=== PATIENT | female | born 1990 | race Two or more races ===

== ENCOUNTER 2018-12-29 21:30 | Observation (INO) | payer MEDICAID ==
[~2018-12-29] VITALS: Ht 162.6 cm; Wt 61.2 kg
[2018-12-29] MEDS ORDERED: PREN-96 PO (21:57)
== END 2018-12-29 22:21 | disposition home or self-care (01) | DRG 566 ==
LOC: LDRP 21:30
PROVIDERS: ADMIT Obstetrics & Gynecology; ATTEND Obstetrics & Gynecology
DX: O36.8130 Decreased fetal movements, third trimester, not applicable or unspecified (principal); Z3A.39 39 weeks gestation of pregnancy
CPT/HCPCS: 59025; 81002; G0378

== ENCOUNTER 2019-01-02 10:33 | Observation (INO) | payer MEDICAID ==
[~2019-01-02 10:33] MED LIST: PREN-96 PO
== END 2019-01-02 12:10 | disposition home or self-care (01) | DRG 566 ==
LOC: LDRP 10:33
PROVIDERS: ADMIT Specialist; ATTEND Specialist
DX: O48.0 Post-term pregnancy (principal); O26.893 Other specified pregnancy related conditions, third trimester; N89.8 Other specified noninflammatory disorders of vagina; Z3A.40 40 weeks gestation of pregnancy
CPT/HCPCS: 59025; 76818; 81002; G0378

== ENCOUNTER 2019-01-04 10:32 | Observation (INO) | payer MEDICAID | END 2019-01-04 11:45 | disposition home or self-care (01) | DRG 566 | LOC: LDRP 10:32 | PROVIDERS: ADMIT Obstetrics & Gynecology; ATTEND Obstetrics & Gynecology | DX: O48.0 Post-term pregnancy (principal); F17.200 Nicotine dependence, unspecified, uncomplicated; O62.9 Abnormality of forces of labor, unspecified; O99.333 Smoking (tobacco) complicating pregnancy, third trimester; Z3A.40 40 weeks gestation of pregnancy | CPT/HCPCS: 76818; G0378; 59025; 81002 ==

== ENCOUNTER 2019-01-06 09:32 | Observation (INO) | payer MEDICAID | END 2019-01-06 12:00 | disposition home or self-care (01) | DRG 566 | LOC: LDRP 10:35 | PROVIDERS: ADMIT Obstetrics & Gynecology; ATTEND Obstetrics & Gynecology | DX: O48.0 Post-term pregnancy (principal); Z3A.40 40 weeks gestation of pregnancy | CPT/HCPCS: 59025; 76818; 81002; G0378 ==

== ENCOUNTER 2019-01-08 12:25 | Observation (INO) | payer MEDICAID | END 2019-01-08 15:15 | disposition home or self-care (01) | DRG 566 | LOC: LDRP 12:25 | PROVIDERS: ADMIT Obstetrics & Gynecology; ATTEND Obstetrics & Gynecology | DX: O48.0 Post-term pregnancy (principal); Z3A.40 40 weeks gestation of pregnancy | CPT/HCPCS: 59025; 76818; 81002; G0378 ==

== ENCOUNTER 2019-01-09 16:56 | Inpatient (IN) | payer MEDICAID ==
[~2019-01-09] VITALS: Ht 162.6 cm; Wt 68.0 kg
[2019-01-09] MEDS ORDERED: LACT. RINGERS/OXYTOCIN 20UNITS 1,000 ML IV SCH (17:28)
[2019-01-09] MEDS ORDERED: WITCH HAZEL-GLYCERIN PAD TOP PRN (17:30)
[2019-01-09] MEDS ORDERED: PHISODERM TOP SOLN 240ML BTL TOP PRN (17:30)
[2019-01-09] MEDS ORDERED: DERMOPLAST 60ML BOTTLE TOP PRN (17:30)
[2019-01-09] MEDS ORDERED: LIDOCAINE 2%HCL (LOCAL ANESTH.) INJ 20ML MDV ID PRN (17:30)
[2019-01-09] MEDS ORDERED: NALBUPHINE HCL 10 MG/1ml INJECTION IV PRN (17:30)
[2019-01-09 18:04] LABS: Basophils # (auto) 0 uL; Basophils % (auto) 0.3 % (0.0-2.0); Eosinophils # (auto) 0 uL; Eosinophils % (auto) 0.7 % (0.0-7.0); Hematocrit 35.6 % (36.0-46.0); Hemoglobin 11.5 g/dL (12.2-16.2); Lymphocytes # (auto) 1.6 uL; Lymphocytes % (auto) 25.3 % (10.0-50.0); Mean Corpuscular Hemoglobin 27.5 pg (28.0-32.0); Mean Corpuscular Hgb Conc. 32.5 g/dL (32.0-36.0); Mean Corpuscular Volume 84.7 fL (80.0-100.0); Monocytes # (auto) 0.5 uL; Monocytes % (auto) 7.2 % (0.0-12.0); Neutrophils # (auto) 4.3 uL; Neutrophils % (auto) 66.5 % (37.0-80.0); Nucleated Red Blood Cells % 0.1 %; Platelet Count (auto) 194 10^3/uL (140-450); Red Cell Distribution Width 14.5 % (11.8-14.3); White Blood Cell 6.5 10^3/uL (4.4-10.8)
[2019-01-09 18:10] LABS: Urine Bacteria FEW /hpf (None Seen); Urine Blood Negative /uL (Negative); Urine Mucus FEW (None Seen); Urine Specific Gravity 1.023 (1.001-1.035); Urine WBC 11 /hpf (0 - 5)
[2019-01-09 18:19] LABS: INR < 0.93 (0.9-1.15); Partial Thromboplastin Time 25.5 sec (23.64-32.05)
[2019-01-09 18:25] LABS: BUN/Creatinine Ratio 17.2
[2019-01-09 18:26] LABS: Albumin 2.8 g/dL (3.4-5.0); Calcium 8.2 mg/dL (8.5-10.1)
[2019-01-09 18:29] LABS: Bilirubin, Total 0.2 mg/dL (0.2-1.0); Total Protein 7.1 g/dL (6.4-8.2)
[2019-01-09] MEDS: LACTATED RINGER'S 1,000 ML IV SCH (21:28)
[2019-01-10] VITALS (14 sets, daily range): BP systolic 92–116; BP diastolic 51–62
[2019-01-10] MEDS ORDERED: TERBUTALINE SULFATE 1 MG/ML 1ML VIAL SC ONE (00:30)
[2019-01-10] MEDS: LACTATED RINGER'S 1,000 ML IV SCH ×2 (01:38→17:06)
[2019-01-10 04:06] LABS: RPR Non Reactive (Non Reactive)
[2019-01-10] MEDS ORDERED: TETRACAINE 1% INJ 2 ML VIAL IJ ONE (07:25)
[2019-01-10] MEDS ORDERED: MIDAZOLAM HCL 1MG/1ML-2 ML VIAL ONE ×2 (07:26→08:27)
[2019-01-10] MEDS ORDERED: MORPHINE SULF(PF) 0.5MG/ML 10ML VIAL ONE (07:26)
[2019-01-10] MEDS ORDERED: fentaNYL CITRATE 100 MCG/2 ML VL ONE (07:26)
[2019-01-10] MEDS ORDERED: LACT. RINGERS/OXYTOCIN 20UNITS 1,000 ML IV SCH (07:29)
[2019-01-10] MEDS ORDERED: ceFAZolin 1GM/50ML 50 ML IV SCH (07:30)
[2019-01-10] MEDS ORDERED: ONDANSETRON HCL 4 MG/2 ML VIAL IV PRN ×2 (07:30→09:00)
[2019-01-10] MEDS ORDERED: MORPHINE SULFATE 4 MG/ML SYR/VIAL IV PRN (07:30)
[2019-01-10] MEDS ORDERED: ceFAZolin 1GM VL ONE (07:59)
[2019-01-10] MEDS ORDERED: OXYTOCIN 10 UNIT/ML 10ML VIAL ONE (08:05)
[2019-01-10] MEDS ORDERED: NALOXONE HCL 0.4 MG/ML VIAL IV PRN (09:00)
[2019-01-10] MEDS ORDERED: diphenhdrAMINE HCL 50 MG/1 ML VL IV PRN (09:00)
[2019-01-10] MEDS ORDERED: DexAMETHasone SOD PHOS 10MG/1ML VIAL INJ IV PRN (09:00)
[2019-01-10] MEDS ORDERED: NALBUPHINE HCL 10 MG/1ml INJECTION SUBCUT ONE (09:00)
[2019-01-10] MEDS ORDERED: ePHEDrine SULFATE 50 MG/ML AMP IV PRN (09:00)
[2019-01-10] MEDS ORDERED: LABETALOL HCL 5 MG/ML 4ML SYRINGE IV PRN (09:00)
[2019-01-10] MEDS ORDERED: HYDROmorphone HCL 2 MG/ML VL IV PRN (09:00)
[2019-01-10] MEDS ORDERED: MIDAZOLAM HCL 1MG/1ML-2 ML VIAL IV PRN (09:00)
--- NOTE | 2019-01-10 09:25 | NUR ---
Report received from La Farfan RN. Pt s/p primary section, fundus firm at umbilicus, lochiaa scant, dressing C/D/I, 475 ml urine out, vital signs stable, 20 Units Pitocin infusing at 125 ml/hr, Pt received duramorph, EBL 500, 0756 Ancef received. Pt to return to unit shortly.
--- NOTE | 2019-01-10 09:35 | NUR ---
Post Op for LDRP: Received patient from PACU via bed to room 4. Patient A/A/Ox4, abdominal binder and bilateral SCD's are in place, IV fluids placed on pump and infusing per order, incisional site dressing clean/dry/intact and Rich Catheter to gravity draining clear yellow urine. Incentive Spirometer at bedside and instruction on proper use with return demonstration done by patient.
[2019-01-10] MEDS: ceFAZolin 1GM/50ML 50 ML IV SCH ×2 (14:01→22:04)
[2019-01-10] MEDS ORDERED: ACETAMINOPHEN IV 1000 MG/100ML (10MG/ML) IV SCH (15:00)
[2019-01-10] MEDS: ACETAMINOPHEN IV 1000 MG/100ML (10MG/ML) IV SCH ×2 (17:06→22:36)
[2019-01-10] MEDS ORDERED: MORPHINE SULF INJ 2 MG/ML SYRINGE 1ML ONE (19:48)
--- NOTE | 2019-01-10 20:00 | NUR ---
Ambulation: PT ambulates to side of bed with this RN assistance. PT sits in chair. There is no signs of distress. Linens changed. PT ambulates back to bed with assistance.
[2019-01-10] MEDS ORDERED: MORPHINE SULF INJ 2 MG/ML SYRINGE 1ML IV PRN (20:30)
[2019-01-10 20:40] LABS: Basophils # (auto) 0 uL; Basophils % (auto) 0.4 % (0.0-2.0); Eosinophils # (auto) 0 uL; Eosinophils % (auto) 0.3 % (0.0-7.0); Hematocrit 26.3 % (36.0-46.0); Hemoglobin 8.7 g/dL (12.2-16.2); Lymphocytes # (auto) 1.5 uL; Lymphocytes % (auto) 18.3 % (10.0-50.0); Mean Corpuscular Hemoglobin 28.2 pg (28.0-32.0); Mean Corpuscular Volume 85.4 fL (80.0-100.0); Monocytes # (auto) 0.6 uL; Monocytes % (auto) 6.8 % (0.0-12.0); Neutrophils # (auto) 6.2 uL; Neutrophils % (auto) 74.2 % (37.0-80.0); Platelet Count (auto) 142 10^3/uL (140-450); Red Blood Cells 3.08 10^6/uL (4.0-5.20); Red Cell Distribution Width 14.8 % (11.8-14.3); White Blood Cell 8.4 10^3/uL (4.4-10.8)
[2019-01-11] VITALS (8 sets, daily range): BP systolic 107–124; BP diastolic 58–77
[2019-01-11] MEDS: LACTATED RINGER'S 1,000 ML IV SCH (02:33)
[2019-01-11] MEDS: ACETAMINOPHEN IV 1000 MG/100ML (10MG/ML) IV SCH (04:30)
[2019-01-11] MEDS ORDERED: BISACODYL 10 MG RECT SUPP PR PRN (04:45)
[2019-01-11] MEDS ORDERED: HYDROcodone-ACET 5/325MG TAB PO PRN (04:45)
--- NOTE | 2019-01-11 05:00 | NUR ---
Norton catheter dc'd Order to discontinue norton catheter. Norton dc'd with clean technique following deflation of balloon. Patient tolerated well with no complaints of pain. Continue care.
[2019-01-11] MEDS: IBUPROFEN 800 MG TAB PO PRN ×3 (05:06→23:02)
[2019-01-11] MEDS: ceFAZolin 1GM/50ML 50 ML IV SCH (05:42)
[2019-01-11] MEDS: HYDROcodone-ACET 5/325MG TAB PO PRN ×3 (05:43→19:07)
[2019-01-11] MEDS: SIMETHICONE 80 MG CHEWABLE TABLET PO SCH ×4 (06:00→21:53)
[2019-01-11 06:38] LABS: Basophils # (auto) 0 uL; Basophils % (auto) 0.2 % (0.0-2.0); Eosinophils # (auto) 0 uL; Eosinophils % (auto) 0.2 % (0.0-7.0); Hemoglobin 8.4 g/dL (12.2-16.2); Monocytes # (auto) 0.4 uL; Monocytes % (auto) 6.2 % (0.0-12.0); Neutrophils # (auto) 5.7 uL; White Blood Cell 7.2 10^3/uL (4.4-10.8)
[2019-01-11 06:40] LABS: Hematocrit 25.4 % (36.0-46.0); Lymphocytes % (auto) 13.8 % (10.0-50.0); Mean Corpuscular Hemoglobin 28.4 pg (28.0-32.0); Mean Corpuscular Hgb Conc. 33.1 g/dL (32.0-36.0); Mean Corpuscular Volume 85.8 fL (80.0-100.0); Neutrophils % (auto) 79.6 % (37.0-80.0); Nucleated Red Blood Cells % 0.1 %; Platelet Count (auto) 134 10^3/uL (140-450); Red Blood Cells 2.96 10^6/uL (4.0-5.20); Red Cell Distribution Width 14.7 % (11.8-14.3)
--- NOTE | 2019-01-11 09:00 | NUR ---
DOCTOR LISA REQUESTED PULSE CHECKS EVERY HOUR. PATIENT HAD A PULSE OF 115 DURING MORNING ASSESSMENT
--- NOTE | 2019-01-11 09:20 | NUR ---
Dr. Goins given update on PT current vitals, stable, no signs of distress. Received order to change LR hourly rate to 60 ml/hr. Addendum: 01/12/19 at 0515 by JEREMY HINDS RN Time called 1919
[2019-01-11] MEDS: PIPERACILLIN-TAZOB 3.375GM 100 ML IV SCH ×4 (09:30→23:59)
[2019-01-11] MEDS: DOCUSATE CALCIUM 240 MG CAP PO SCH (10:00)
[2019-01-11] MEDS: FERROUS SULFATE 325 MG TAB PO SCH ×2 (14:18→21:53)
--- NOTE | 2019-01-11 14:30 | NUR ---
NOTIFIED DR GONZALEZ OF PATIENTS PULSE OF 105-115. DOCTOR ORDERED CT OF ABDOMEN WITH PELVIS, CBC, AND TYPE AND CROSS. 1450 DR GONZALEZ AND JABIER CAME IN THE CHECK ON PATIENT
[2019-01-11] MEDS ORDERED: IOHEXOL 350 MG/ML 100ML IJ ONE (14:40)
[2019-01-11 15:29] LABS: Basophils # (auto) 0 uL; Basophils % (auto) 0.2 % (0.0-2.0); Eosinophils # (auto) 0 uL; Hematocrit 26.1 % (36.0-46.0); Monocytes # (auto) 0.4 uL; Neutrophils # (auto) 5.9 uL
[2019-01-11 15:31] LABS: Eosinophils % (auto) 0.1 % (0.0-7.0); Hemoglobin 8.5 g/dL (12.2-16.2); Lymphocytes # (auto) 0.8 uL; Lymphocytes % (auto) 10.6 % (10.0-50.0); Mean Corpuscular Hemoglobin 28.2 pg (28.0-32.0); Mean Corpuscular Hgb Conc. 32.7 g/dL (32.0-36.0); Mean Corpuscular Volume 86.2 fL (80.0-100.0); Monocytes % (auto) 5.5 % (0.0-12.0); Neutrophils % (auto) 83.6 % (37.0-80.0); Platelet Count (auto) 143 10^3/uL (140-450); Red Blood Cells 3.02 10^6/uL (4.0-5.20); Red Cell Distribution Width 15.1 % (11.8-14.3); White Blood Cell 7.1 10^3/uL (4.4-10.8)
--- NOTE | 2019-01-11 16:06 | NUR ---
NOTIFIED DOCTOR LISA OF PATIENTS CBC AND CT SCAN. NO NEW ORDERS AT THIS TIME
[2019-01-11] MEDS ORDERED: LACTATED RINGER'S 1,000 ML IV SCH (20:45)
[2019-01-12 03:30] VITALS: BP 118/70
--- NOTE | 2019-01-12 05:13 | NUR ---
Dr. Goins given update on PT current vitals. Continue plan of care.
[2019-01-12] MEDS: HYDROcodone-ACET 5/325MG TAB PO PRN ×2 (05:36→12:10)
[2019-01-12] MEDS: PIPERACILLIN-TAZOB 3.375GM 100 ML IV SCH (05:36)
[2019-01-12] MEDS: SIMETHICONE 80 MG CHEWABLE TABLET PO SCH ×4 (05:36→23:51)
[2019-01-12] MEDS: FERROUS SULFATE 325 MG TAB PO SCH ×3 (05:36→23:51)
[2019-01-12 07:00] VITALS: BP 96/54
--- NOTE | 2019-01-12 07:00 | NUR ---
the patient is laying down on her left side with the pulse oxymeter on and the pulse is 97 and then when the story writer of this note put on the blood pressure cuff to take the vital signs her pulse went up to 114.the patient seems anxious everytime she sees rhe staff doing something for her like talk to her and explaining on the poc but otherwise the patient seems fine and no complaints made so far.
--- NOTE | 2019-01-12 07:40 | NUR ---
dr. patel came in and received order to stop the zozyn and iv fluids and encourage to drink lots of water.
[2019-01-12] MEDS: DOCUSATE CALCIUM 240 MG CAP PO SCH (10:00)
[2019-01-12 11:00] VITALS: BP 121/81
[2019-01-12 15:00] VITALS: BP 118/72
[2019-01-12] MEDS: IBUPROFEN 800 MG TAB PO PRN (17:42)
--- NOTE | 2019-01-12 18:10 | NUR ---
Received report, assumed care.
--- NOTE | 2019-01-12 18:30 | NUR ---
initiated assessment, discussed goals, reviewed plan of care. Pt verbalized understanding , requested pain medication..See flow sheet for complete data.
[2019-01-12 19:00] VITALS: BP 119/72
--- NOTE | 2019-01-12 19:00 | NUR ---
Pt declined medication, stated her pain was tolerable 06/29. Ambulation encouraged.
--- NOTE | 2019-01-12 19:05 | NUR ---
Pt currently bottle feeding .
--- NOTE | 2019-01-12 21:00 | NUR ---
Pt out of bed, ambulating throughout unit. No distress noted.
[2019-01-12 23:30] VITALS: BP 117/80
--- NOTE | 2019-01-13 00:59 | NUR ---
Report received: Assumed care for lunch coverage of stable mother and .
--- NOTE | 2019-01-13 03:38 | NUR ---
Nadeen Cox CNM at bedside, lucía removed. Pt reports of having a BM. Denies pain
[2019-01-13 04:07] VITALS: BP 117/72
[2019-01-13] MEDS: SIMETHICONE 80 MG CHEWABLE TABLET PO SCH ×2 (05:35→11:55)
[2019-01-13] MEDS: FERROUS SULFATE 325 MG TAB PO SCH ×2 (05:50→14:00)
[2019-01-13 07:15] VITALS: BP 118/70
[2019-01-13] MEDS: DOCUSATE CALCIUM 240 MG CAP PO SCH (09:58)
--- NOTE | 2019-01-13 09:59 | NUR ---
PT REFUSED SCHEDULED 1000 SURFAK PO MEDICATION, EDUCATION PROVIDED. WILL CONTINUE TO MONITOR.
[2019-01-13 10:40] VITALS: BP 114/68
[2019-01-13] MEDS ORDERED: TETANUS-DIPTH-ACEL PERTUSSIS 0.5ML SYRG IM ONE (11:30)
[2019-01-13] MEDS ORDERED: MEASLES, MUMPS & RUBELLA VAC(MMRII) 0.5ML SC ONE (11:30)
--- NOTE | 2019-01-13 12:49 | NUR ---
IV removal IV DC'd with clean sterile technique, catheter fully intact. Pressure dressing applied to site. Patient tolerated well.
--- NOTE | 2019-01-13 13:12 | NUR ---
Discharge: Discharge instructions given as ordered. Pt encouraged to follow up with [facility] as instructed. All questions and concerns addressed. Patient verbalized understanding. Medication reconciliation completed and copy given to patient. All required/requested vaccines given and copies of vaccinations given to patient. Patient encouraged to prepare to depart unit.
[2019-01-13] MEDS: IBUPROFEN 800 MG TAB PO PRN ×2 (13:31→13:35)
[2019-01-13 14:35] VITALS: BP 127/66
--- NOTE | 2019-01-13 14:40 | NUR ---
DR. GONZALEZ NOTIFIED OF PTS TRENDING VITAL SIGNS, MOST RECENT PULSE 1152BPM. PT WALKING AROUND IN ROM PRIOR TO VITALS CHECK PREPARING FOR DISCHARGE. TP DENIES ANY S/S OF DISTRESS OR SOB. ORDERS RECEIVED FROM DR. GONZALEZ TO RESUME WITH PT DISCHARGE HOME AND FOLLOW UP SCHEDULED. READ BACK AND VERIFIED ORDERS. WILL CARRY OUT. Addendum: 01/13/19 at 1705 by Dayana Moulton RN pulse 112bpm.
--- NOTE | 2019-01-13 16:20 | NUR ---
Discharge: Patient taken to vehicle ambulatory via steady gait, pt declined wheelchair with all personal belongings, accompanied by staff and spouse. No distress noted at time of departure, no adverse changes in status since initial assessment.
== END 2019-01-13 16:20 | disposition home or self-care (01) | DRG 540 ==
LOC: LDRP 16:56
PROVIDERS: ADMIT Specialist; ATTEND Specialist
PROC: 10D00Z1 Extraction of Products of Conception, Low, Open Approach (ICD-10-PCS; principal; 2019-01-10 07:35)
DX: O76 Abnormality in fetal heart rate and rhythm complicating labor and delivery (principal); F41.9 Anxiety disorder, unspecified; O48.0 Post-term pregnancy; Z37.0 Single live birth; Z3A.41 41 weeks gestation of pregnancy; O99.344 Other mental disorders complicating childbirth; Z91.013 Allergy to seafood
CPT/HCPCS: 36415; 51702; 59025; 74176; 76818; 80053; 81001; 81002; 84112; 85025; 85610; 85730; 86592; 86850; 86900; 86901; 86920; 90471; 90715; 94762; 96365; 96366; 96372; 96375; G0378; J0131; J0690; J2250; J2543; J2590

== ENCOUNTER → 2021-02-24 | Outpatient (CLI) | payer MEDICAID | END | disposition home or self-care (01) | LOC: OB 10:27 | PROVIDERS: ATTEND Obstetrics & Gynecology Obstetrics | DX: Z11.52 Encounter for screening for COVID-19 (principal); Z20.822 Contact with and (suspected) exposure to COVID-19 | CPT/HCPCS: C9803; U0003 ==

== ENCOUNTER 2021-02-26 04:47 | Inpatient (IN) | payer MEDICAID ==
[~2021-02-26] VITALS: Ht 157.5 cm; Wt 65.3 kg
[2021-02-26] VITALS (16 sets, daily range): BP systolic 92–113; BP diastolic 49–75
[2021-02-26] MEDS ORDERED: ceFAZolin 1GM/50ML 50 ML IV ONE (05:15)
[2021-02-26] MEDS ORDERED: LACTATED RINGER'S 1,000 ML IV ONE (05:15)
[2021-02-26 06:01] LABS: Basophils # (auto) 0 10 ^3/uL (0-0.2); Eosinophils # (auto) 0.1 10 ^3/uL (0-0.8); Eosinophils % (auto) 0.8 % (0.0-7.0); Lymphocytes # (auto) 2.1 10 ^3/uL (0.4-5.4); Mean Corpuscular Hemoglobin 24.9 pg (28.0-32.0); Monocytes # (auto) 0.5 10 ^3/uL (0-1.3); Neutrophils # (auto) 6.1 10 ^3/uL (1.6-8.6); Nucleated Red Blood Cells % 0.1 %
[2021-02-26 06:03] LABS: Basophils % (auto) 0.3 % (0.0-2.0); Hematocrit 33.2 % (36.0-46.0); Hemoglobin 10.7 g/dL (12.2-16.2); Lymphocytes % (auto) 24.2 % (10.0-50.0); Mean Corpuscular Hgb Conc. 32.2 g/dL (32.0-36.0); Mean Corpuscular Volume 77.3 fL (80.0-100.0); Monocytes % (auto) 5.4 % (0.0-12.0); Neutrophils % (auto) 69.3 % (37.0-80.0); Red Blood Cells 4.29 10^6/uL (4.0-5.20); Red Cell Distribution Width 16.5 % (11.8-14.3); White Blood Cell 8.8 10^3/uL (4.4-10.8)
[2021-02-26] MEDS: LACTATED RINGER'S 1,000 ML IV SCH ×2 (06:12→20:03)
[2021-02-26 06:18] LABS: INR 1.01 (0.9-1.15); Partial Thromboplastin Time 25.8 sec (23.6-33.0)
[2021-02-26 06:25] LABS: Albumin 2.8 g/dL (3.4-5.0); Calcium 7.9 mg/dL (8.5-10.1); Potassium 3.4 mmol/L (3.5-5.1)
[2021-02-26 06:26] LABS: Amphetamine Screen, Urine NEGATIVE (NEGATIVE); Barbiturate Scree,Urine NEGATIVE (NEGATIVE); Benzodiazephine Screen, Urine NEGATIVE (NEGATIVE); Cannabinoid Screen, Urine NEGATIVE (NEGATIVE); Cocaine Screen, Urine NEGATIVE (NEGATIVE); Opiate Scree,Urine NEGATIVE (NEGATIVE); Phencyclidine Screen, Urine NEGATIVE (NEGATIVE)
[2021-02-26 06:29] LABS: Urine Bacteria FEW /hpf (None Seen); Urine Blood Negative /uL (Negative); Urine Specific Gravity 1.008 (1.001-1.035); Urine WBC <1 /hpf (0 - 5)
[2021-02-26 06:30] LABS: Bilirubin, Total 0.3 mg/dL (0.2-1.0); Total Protein 7.2 g/dL (6.4-8.2)
[2021-02-26] MEDS ORDERED: TETRACAINE 1% INJ 2 ML VIAL IJ ONE (07:08)
[2021-02-26] MEDS ORDERED: SODIUM CITR/CITRIC ACID ORAL SOLN 30 ML ONE (07:08)
[2021-02-26] MEDS ORDERED: MORPHINE SULF PF 2 MG/2 ML SYRG ONE (07:14)
[2021-02-26] MEDS ORDERED: fentaNYL CITRATE 100 MCG/2 ML VL ONE (07:14)
[2021-02-26] MEDS ORDERED: GUM (CHEWING) 1 GUM CHEW CHEW ONE (07:30)
[2021-02-26] MEDS ORDERED: ceFAZolin 1GM/50ML 50 ML IV SCH (07:30)
[2021-02-26] MEDS ORDERED: MORPHINE SULFATE 4 MG/ML SYR/VIAL IV PRN (07:30)
[2021-02-26] MEDS ORDERED: ONDANSETRON HCL 4 MG/2 ML VIAL IV PRN ×2 (07:30→08:45)
[2021-02-26] MEDS ORDERED: LACT. RINGERS/OXYTOCIN 20UNITS 1,000 ML IV ONE (07:30)
[2021-02-26] MEDS ORDERED: ePHEDrine SULFATE 50 MG/ML AMP ONE (08:26)
[2021-02-26] MEDS ORDERED: ONDANSETRON HCL 4 MG/2 ML VIAL ONE (08:26)
[2021-02-26] MEDS ORDERED: oxyTOCIN 10 UNIT/ML 10ML VIAL ONE (08:26)
[2021-02-26] MEDS ORDERED: NALBUPHINE HCL 10 MG/1ml INJECTION SUBCUT ONE (08:45)
[2021-02-26] MEDS ORDERED: KETOROLAC TROMETH 30 MG/ML 1ML VIAL IV PRN (08:45)
[2021-02-26] MEDS ORDERED: DexAMETHasone SOD PHOS 10MG/1ML VIAL INJ IV PRN (08:45)
[2021-02-26] MEDS ORDERED: diphenhdrAMINE HCL 50 MG/1 ML VL IV PRN (08:45)
[2021-02-26] MEDS ORDERED: NALOXONE HCL 0.4 MG/ML VIAL IV PRN (08:45)
[2021-02-26] MEDS ORDERED: HYDROmorphone HCL 2 MG/ML VL IV PRN (08:45)
[2021-02-26] MEDS: ACETAMINOPHEN IV 1000 MG/100ML (10MG/ML) IV PRN (14:26)
[2021-02-26] MEDS: ceFAZolin 1GM/50ML 50 ML IV SCH ×2 (15:27→23:05)
[2021-02-26 21:29] LABS: Hemoglobin 9.4 g/dL (12.2-16.2)
[2021-02-26 21:32] LABS: Basophils # (auto) 0 10 ^3/uL (0-0.2); Basophils % (auto) 0.1 % (0.0-2.0); Eosinophils # (auto) 0 10 ^3/uL (0-0.8); Eosinophils % (auto) 0.2 % (0.0-7.0); Hematocrit 29.3 % (36.0-46.0); Lymphocytes # (auto) 1.3 10 ^3/uL (0.4-5.4); Lymphocytes % (auto) 13.8 % (10.0-50.0); Mean Corpuscular Hemoglobin 24.9 pg (28.0-32.0); Mean Corpuscular Hgb Conc. 32.1 g/dL (32.0-36.0); Mean Corpuscular Volume 77.5 fL (80.0-100.0); Monocytes # (auto) 0.6 10 ^3/uL (0-1.3); Monocytes % (auto) 6.1 % (0.0-12.0); Neutrophils # (auto) 7.7 10 ^3/uL (1.6-8.6); Neutrophils % (auto) 79.8 % (37.0-80.0); Nucleated Red Blood Cells % 0.1 %; Red Blood Cells 3.79 10^6/uL (4.0-5.20); Red Cell Distribution Width 16.7 % (11.8-14.3); White Blood Cell 9.7 10^3/uL (4.4-10.8)
[2021-02-27] VITALS (12 sets, daily range): BP systolic 89–111; BP diastolic 53–65
[2021-02-27] MEDS: ACETAMINOPHEN IV 1000 MG/100ML (10MG/ML) IV PRN (02:23)
[2021-02-27 05:51] LABS: Basophils # (auto) 0 10 ^3/uL (0-0.2); Basophils % (auto) 0.3 % (0.0-2.0); Eosinophils # (auto) 0 10 ^3/uL (0-0.8); Eosinophils % (auto) 0.3 % (0.0-7.0); Lymphocytes # (auto) 1.3 10 ^3/uL (0.4-5.4); Red Cell Distribution Width 16.5 % (11.8-14.3); White Blood Cell 8.7 10^3/uL (4.4-10.8)
[2021-02-27 05:52] LABS: Hematocrit 26.8 % (36.0-46.0); Hemoglobin 8.7 g/dL (12.2-16.2); Lymphocytes % (auto) 14.7 % (10.0-50.0); Mean Corpuscular Hemoglobin 25.2 pg (28.0-32.0); Mean Corpuscular Hgb Conc. 32.5 g/dL (32.0-36.0); Mean Corpuscular Volume 77.5 fL (80.0-100.0); Monocytes # (auto) 0.5 10 ^3/uL (0-1.3); Monocytes % (auto) 6.3 % (0.0-12.0); Neutrophils # (auto) 6.8 10 ^3/uL (1.6-8.6); Neutrophils % (auto) 78.4 % (37.0-80.0); Red Blood Cells 3.46 10^6/uL (4.0-5.20)
[2021-02-27] MEDS ORDERED: BISACODYL 10 MG RECT SUPP PR PRN (06:00)
[2021-02-27] MEDS ORDERED: HYDROcodone-ACET 5/325MG TAB PO PRN ×2 (06:00)
[2021-02-27] MEDS ORDERED: IBUPROFEN 800 MG TAB PO PRN (06:00)
[2021-02-27] MEDS ORDERED: SIMETHICONE 80 MG CHEWABLE TABLET PO PRN (07:00)
[2021-02-27] MEDS: ceFAZolin 1GM/50ML 50 ML IV SCH (07:48)
[2021-02-27] MEDS ORDERED: ACETAMINOPHEN 650 mg PER 20.3 mL UD GT PRN (10:00)
[2021-02-27] MEDS ORDERED: DOCUSATE CALCIUM 240 MG CAP PO SCH (10:00)
[2021-02-27] MEDS ORDERED: DOCUSATE SOD 100 MG CAP PO SCH (10:00)
[2021-02-27] MEDS: IBUPROFEN 100MG/5ML ORAL SUSP 100 MG/5 ML UD GT PRN ×2 (11:04→19:27)
[2021-02-27] MEDS: FERROUS SULFATE 325mg EC TAB PO SCH (19:24)
[2021-02-28] VITALS (7 sets, daily range): BP systolic 90–115; BP diastolic 50–68
[2021-02-28] MEDS: IBUPROFEN 100MG/5ML ORAL SUSP 100 MG/5 ML UD GT PRN ×2 (05:55→14:36)
[2021-02-28] MEDS: FERROUS SULFATE 325mg EC TAB PO SCH ×2 (10:00→17:35)
[2021-03-01] MEDS: IBUPROFEN 100MG/5ML ORAL SUSP 100 MG/5 ML UD GT PRN ×2 (00:13→08:22)
[2021-03-01 03:00] VITALS: BP 85/65
[2021-03-01 07:20] VITALS: BP 99/70
[2021-03-01] MEDS: FERROUS SULFATE 325mg EC TAB PO SCH (08:21)
[2021-03-01 11:59] VITALS: BP 105/67
== END 2021-03-01 13:25 | disposition home or self-care (01) | DRG 540 ==
LOC: LDRP 04:47
PROVIDERS: ADMIT Obstetrics & Gynecology; ATTEND Obstetrics & Gynecology
PROC: 10D00Z1 Extraction of Products of Conception, Low, Open Approach (ICD-10-PCS; principal; 2021-02-26 07:14)
DX: O34.211 Maternal care for low transverse scar from previous cesarean delivery (principal); Z20.822 Contact with and (suspected) exposure to COVID-19; Z37.0 Single live birth; Z3A.39 39 weeks gestation of pregnancy; Z88.8 Allergy status to other drugs, medicaments and biological substances; Z91.041 Radiographic dye allergy status; Z91.013 Allergy to seafood; Z91.018 Allergy to other foods
CPT/HCPCS: 36415; 59025; 80053; 80307; 81001; 81002; 84112; 85025; 85610; 85730; 86592; 86850; 86900; 86901; 87426; 94760; 94762; 96360; 96361; 96365; 96366; 96372; 96374; G0378; J0131; J0690; J2405; J2590